=== PATIENT | male | born 1945 | race Caucasian/White ===

== ENCOUNTER 2016-10-03 01:39 | Emergency (ER) | payer MEDICARE, BC ==
[2008-02-23 18:02] VITALS: BP 144/61
[~2016-10-03] VITALS: Ht 185.4 cm; Wt 127.7 kg
[~2016-10-03 01:39] MED LIST: ACIPHEX20 MG PO; ASPIRIN 32325 MG/TAB PO; ASPIRIN 81M81 MG/TA2 PO; ASPIRIN E.C. 8181 MG PO; ATIVAN 0.50.5 MG/TAB PO; ATROVENT I0.2 MG/1 M IH; BROVANA15 MCG/2 M IH; BYSTOLIC10 MG PO; CLOPIDOGREL; CO ENZYME Q-1050 MG PO; DIOVAN; DOXYCYCLINE 10100 MG PO; EFFIENT10 MG PO; EPA/GLA1 SGL PO; FISH OIL1 IU PO; HYZAAR 25 MG-101 TAB PO; IMDUR 30MG30 MG/TAB PO; LEVAQUIN 5500 MG/TA1 PO; LIVALO PO; LIVALO2 MG PO; LOPRESSOR 225 MG/TAB PO; MASON NATURAL1200 MG PO; MEDROL 4MG DOSPA4 MG PO; MICARDIS HCT 251 TAB PO; MULTI VITAMINS1 TAB PO; NEURONTIN100 MG/CAP PO; PHENERGAN W/CO120 M1 PO; PLAVIX 75MG TAB75 MG PO; PRAVACHOL 40MG40 MG PO; PREDNISONE20 MG PO; PRILOTC PO; PRINIVIL20 MG PO; PROTONIX 40MG T40 MG PO; PROTONIX40 MG PO; PULMICORT0.25 MG/2 IH; PULMICORT0.5 MG/2 M IH; PULMICORT0.5 MG/21 IH; RT SPIRIVA18 MCG IH; SINGULAIR 110 MG/TAB PO; SINGULAIR10 MG PO; SPIRIVA; UNICOMPLEX1 CAP PO; VALIUM 5MG T5 MG/TAB PO; VITAMIN D32000 I1 PO; XOPENEX 0.0.625 MG/3 IH; XOPENEX 3 ML3 M1 IH; ZITHROMAX 250M250 MG PO; ZOCOR 20MG20 MG PO; ZOFRAN 4MG T4 MG/TAB PO; ZOFRAN ODT4 MG PO; [UNRECOGNIZED DRUG - OTHER]; spiriva
[2016-10-03] MEDS ORDERED: PERCOCET 325 MG1 TA2 PO (02:25)
[2016-10-03] MEDS ORDERED: VALTREX1 GM PO (02:25)
[2016-10-03] MEDS ORDERED: ZOFRAN ODT4 MG PO (02:25)
[2016-10-03 02:34] VITALS: BP 176/80; PULSE 88; TEMP 98.1
== END 2016-10-03 02:36 | disposition home or self-care (01) ==
LOC: COL.ER 01:39
DX: B02.9 Zoster without complications (principal); I25.10 Atherosclerotic heart disease of native coronary artery without angina pectoris; Z95.5 Presence of coronary angioplasty implant and graft; J44.9 Chronic obstructive pulmonary disease, unspecified; Z79.02 Long term (current) use of antithrombotics/antiplatelets; K21.9 Gastro-esophageal reflux disease without esophagitis

== ENCOUNTER 2017-02-02 16:15 | Inpatient (IN) | payer MEDICARE, BC ==
[~2017-02-02] VITALS: Ht 185.4 cm; Wt 128.1 kg
[~2017-02-02 16:15] MED LIST changes: +PERCOCET 325 MG1 TA2 PO; +VALTREX1 GM PO
[2017-02-02 16:50] LABS: BASO % 0.3 % (0.0-2.0); EOS % 0.2 % (0-4.0); GRAN # 9.9 (1.4-6.5); HEMATOCRIT 38.5 % (42.0-52.0); HEMOGLOBIN 13.1 g/dl (13.5-18.0); LYMPH # 0.8 (1.2-3.4); LYMPH % 7.1 % (20.0-51.0); MEAN CELL VOLUME 91 fl (80.0-100.0); MEAN CORPUSCULAR HEMOGLOBIN 31 pg (27.0-31.0); MEAN CORPUSCULAR HGB CONC 34 g/dl (33.0-37.0); MEAN PLATELET VOLUME 10.1 fl (7.4-10.4); MONO # 0.6 (0.1-0.6); MONO % 4.9 % (1.7-9.3); PLATELET COUNT 317 K/mm3 (130-400); RED BLOOD COUNT 4.24 M/mm3 (4.20-5.60); REDCELL DISTRIBUTION WIDTH-CV 12.9 % (11.5-14.5); WHITE BLOOD COUNT 11.4 K/mm3 (4.8-10.8)
[2017-02-02 16:58] LABS: INR 1.4 (0.8-3.0); PROTHROMBIN TIME 15.4 SECONDS (9.7-12.8)
[2017-02-02] MEDS ORDERED: PERCOCET 325 MG1 TA2 PO (16:58)
[2017-02-02] MEDS ORDERED: OMNICEF 300MG300 MG PO (16:58)
[2017-02-02] MEDS ORDERED: ZOCOR 20MG20 MG PO (16:58)
[2017-02-02] MEDS ORDERED: NEURONTIN600 MG/TAB PO (16:59)
[2017-02-02] MEDS ORDERED: SINGULAIR 110 MG/TAB PO (16:59)
[2017-02-02] MEDS ORDERED: PROTONIX 40MG T40 MG PO (16:59)
[2017-02-02] MEDS ORDERED: MULTIPLE VITAMI1 CAP PO (16:59)
[2017-02-02] MEDS ORDERED: ISOCHRON40 MG PO (17:00)
[2017-02-02] MEDS ORDERED: ASPIRIN E.C. 8181 MG PO (17:01)
[2017-02-02] MEDS ORDERED: PLAVIX 75MG TAB75 MG PO (17:01)
[2017-02-02] MEDS ORDERED: BYSTOLIC10 MG PO (17:01)
[2017-02-02] MEDS ORDERED: HYZAAR 25 MG-101 TAB PO (17:01)
[2017-02-02] MEDS ORDERED: MASON NATURAL2000 IU (17:02)
[2017-02-02 17:11] LABS: ADJUSTED CALCIUM 9.5 mg/dL (8.4-10.2); ALANINE AMINOTRANSFERASE 28 U/L (21-72); ALBUMIN 3.7 gm/dL (3.5-5.0); ALKALINE PHOSPHATASE 90 U/L (50-136); ANION GAP 12 mmol/L (7-16); BILIRUBIN,TOTAL 1.3 mg/dL (0.0-1.0); BLOOD UREA NITROGEN 33 mg/dL (9-20); CALCIUM 9.3 mg/dL (8.4-10.2); CARBON DIOXIDE 28 mmol/L (22-30); CHLORIDE 95 mmol/L (98-107); CREATININE, serum 1.39 mg/dL (0.66-1.25); GLUCOSE 111 mg/dL (74-106); LIPASE 65 U/L (23-300); POTASSIUM 4.1 mmol/L (3.4-5.0); SODIUM 135 mmol/L (137-145); TOTAL PROTEIN 7.3 gm/dL (6.4-8.2)
[2017-02-02 17:24] LABS: TROPONIN-I < 0.012 ng/mL (0.000-0.034)
[2017-02-02 17:41] LABS: B-TYPE NATRIURETIC PEPTIDE 233 pg/mL (0-125)
[2017-02-02 21:27] VITALS: BP 135/48; PULSE 92; TEMP 98.4
[2017-02-03 00:27] VITALS: BP 137/49; PULSE 85; TEMP 97.8
[2017-02-03 05:12] VITALS: BP 126/44; PULSE 84; TEMP 97.9
[2017-02-03 06:58] LABS: ADD PATHOLOGY DIFF REVIEW NO
[2017-02-03 07:08] LABS: HEMATOCRIT 35.4 % (42.0-52.0); MEAN CELL VOLUME 92 fl (80.0-100.0); MEAN CORPUSCULAR HEMOGLOBIN 31 pg (27.0-31.0); MEAN CORPUSCULAR HGB CONC 34 g/dl (33.0-37.0); MEAN PLATELET VOLUME 10.1 fl (7.4-10.4); PLATELET COUNT 320 K/mm3 (130-400); RED BLOOD COUNT 3.85 M/mm3 (4.20-5.60); REDCELL DISTRIBUTION WIDTH-CV 12.8 % (11.5-14.5); WHITE BLOOD COUNT 9.6 K/mm3 (4.8-10.8)
[2017-02-03 07:18] LABS: ANION GAP 11 mmol/L (7-16); BLOOD UREA NITROGEN 31 mg/dL (9-20); CALCIUM 8.7 mg/dL (8.4-10.2); CARBON DIOXIDE 29 mmol/L (22-30); CHLORIDE 95 mmol/L (98-107); CREATININE, serum 1.14 mg/dL (0.66-1.25); GLUCOSE 174 mg/dL (74-106); POTASSIUM 3.8 mmol/L (3.4-5.0); SODIUM 134 mmol/L (137-145)
[2017-02-03 07:32] LABS: BAND 8 % (0-10); BASOPHIL 1 % (0-2); NEUTROPHILS 85 % (42.0-75.2); PLATELET ESTIMATE NORMAL (NORMAL); TOTAL CELLS COUNTED 100
[2017-02-03 07:49] VITALS: BP 144/61; PULSE 78; TEMP 97.2
[2017-02-03 12:33] VITALS: BP 102/74; PULSE 82; TEMP 98.5
[2017-02-03 14:22] LABS: TROPONIN-I < 0.012 ng/mL (0.000-0.034)
[2017-02-03 15:08] VITALS: BP 117/52; PULSE 86; TEMP 98.2
[2017-02-04 01:30] VITALS: BP 148/69; PULSE 79; TEMP 97.4
[2017-02-04 04:45] VITALS: BP 174/93; PULSE 85; TEMP 97.9
[2017-02-04 07:36] VITALS: BP 163/56; PULSE 80; TEMP 97.6
[2017-02-04] MEDS ORDERED: LEVAQUIN 750MG750 M1 PO (10:22)
[2017-02-04] MEDS ORDERED: PREDNISONE20 MG PO (10:23)
[2017-02-04 12:47] VITALS: BP 125/63; PULSE 93; TEMP 97.5
== END 2017-02-04 13:30 | disposition home or self-care (01) | DRG 190 ==
LOC: COL.ER 16:15 → MEDICAL 19:45
PROVIDERS: Emergency Medicine
DX: J44.1 Chronic obstructive pulmonary disease with (acute) exacerbation (principal); J18.9 Pneumonia, unspecified organism; N17.9 Acute kidney failure, unspecified; I10 Essential (primary) hypertension; I73.9 Peripheral vascular disease, unspecified; G47.33 Obstructive sleep apnea (adult) (pediatric); K21.9 Gastro-esophageal reflux disease without esophagitis; E78.5 Hyperlipidemia, unspecified; R73.9 Hyperglycemia, unspecified; Z87.891 Personal history of nicotine dependence
CPT/HCPCS: 99222-AI; 99231-AI; 99239; J0456; J0696; J1170; J1940; J2405; J2920; J7030; J7050; J7512; Q9967

== ENCOUNTER 2017-05-03 15:10 | Emergency (ER) | payer MEDICARE, BC ==
[2008-02-23 18:02] VITALS: BP 144/61
[~2017-05-03] VITALS: Ht 185.4 cm; Wt 122.7 kg
[~2017-05-03 15:10] MED LIST changes: +ISOCHRON40 MG PO; +LEVAQUIN 750MG750 M1 PO; +MASON NATURAL2000 IU; +MULTIPLE VITAMI1 CAP PO; +NEURONTIN600 MG/TAB PO; +OMNICEF 300MG300 MG PO
[2017-05-03 15:22] VITALS: TEMP 98.1
[2017-05-03 16:48] LABS: BASO % 0.7 % (0.0-2.0); EOS # 0.2 (0.0-0.7); EOS % 2.8 % (0-4.0); GRAN # 3.3 (1.4-6.5); GRAN % 57.2 % (42.2-75.2); HEMATOCRIT 38.9 % (42.0-52.0); HEMOGLOBIN 13.4 g/dl (13.5-18.0); LYMPH # 1.8 (1.2-3.4); LYMPH % 31.9 % (20.0-51.0); MEAN CELL VOLUME 89 fl (80.0-100.0); MEAN CORPUSCULAR HEMOGLOBIN 31 pg (27.0-31.0); MEAN CORPUSCULAR HGB CONC 34 g/dl (33.0-37.0); MEAN PLATELET VOLUME 10.3 fl (7.4-10.4); MONO # 0.4 (0.1-0.6); PLATELET COUNT 251 K/mm3 (130-400); RED BLOOD COUNT 4.36 M/mm3 (4.20-5.60); WHITE BLOOD COUNT 5.7 K/mm3 (4.8-10.8)
[2017-05-03 16:55] LABS: INR 1.1 (0.8-3.0); PROTHROMBIN TIME 12.6 SECONDS (9.7-12.8)
[2017-05-03 17:35] VITALS: BP 182/73; PULSE 70
== END 2017-05-03 17:36 | disposition home or self-care (01) ==
LOC: COL.ER 15:10
PROVIDERS: Nurse Practitioner Primary Care
DX: I10 Essential (primary) hypertension (principal); I25.10 Atherosclerotic heart disease of native coronary artery without angina pectoris; I25.2 Old myocardial infarction; J44.9 Chronic obstructive pulmonary disease, unspecified; S50.811A Abrasion of right forearm, initial encounter; Z79.02 Long term (current) use of antithrombotics/antiplatelets; Z79.82 Long term (current) use of aspirin; W22.8XXA Striking against or struck by other objects, initial encounter

== ENCOUNTER → 2018-08-02 | Outpatient (CLI) | payer MEDICARE, BC | LOC: COL.RAD 13:32 | DX: M43.16 Spondylolisthesis, lumbar region (principal); M48.07 Spinal stenosis, lumbosacral region; M51.37 Other intervertebral disc degeneration, lumbosacral region | CPT/HCPCS: A9585 ==

== ENCOUNTER 2018-09-06 10:10 | Emergency (ER) | payer MEDICARE, BC ==
[2008-02-23 18:02] VITALS: BP 144/61
[~2018-09-06] VITALS: Ht 185.4 cm; Wt 130.0 kg
[2018-09-06 10:23] VITALS: TEMP 98.5
[2018-09-06 11:09] LABS: BASO % 0.2 % (0.0-2.0); GRAN # 5.7 (1.4-6.5); GRAN % 87.4 % (42.2-75.2); HEMATOCRIT 38.6 % (42.0-52.0); HEMOGLOBIN 13.6 g/dl (13.5-18.0); LYMPH # 0.5 (1.2-3.4); LYMPH % 7.4 % (20.0-51.0); MEAN CELL VOLUME 89 fl (80.0-100.0); MEAN CORPUSCULAR HEMOGLOBIN 31 pg (27.0-31.0); MEAN CORPUSCULAR HGB CONC 35 g/dl (33.0-37.0); MEAN PLATELET VOLUME 9.6 fl (7.4-10.4); MONO # 0.3 (0.1-0.6); MONO % 4.5 % (1.7-9.3); PLATELET COUNT 304 K/mm3 (130-400); RED BLOOD COUNT 4.36 M/mm3 (4.20-5.60); REDCELL DISTRIBUTION WIDTH-CV 13.2 % (11.5-14.5)
[2018-09-06 11:24] LABS: CALCIUM 8.8 mg/dL (8.4-10.2); CREATININE, serum 1.18 (0.66-1.25); POTASSIUM 3.5 mmol/L (3.4-5.0); TOTAL PROTEIN 7.1 gm/dL (6.4-8.2)
[2018-09-06] MEDS ORDERED: ZOFRAN 4MG T4 MG/TAB PO (12:22)
[2018-09-06 13:40] VITALS: BP 172/82; PULSE 90
== END 2018-09-06 13:43 | disposition home or self-care (01) ==
LOC: COL.ER 10:10
PROVIDERS: Emergency Medicine
DX: K52.9 Noninfective gastroenteritis and colitis, unspecified (principal); Z79.82 Long term (current) use of aspirin; Z79.02 Long term (current) use of antithrombotics/antiplatelets
CPT/HCPCS: J1885; J2405; J2550; J3010; J7030

== ENCOUNTER 2018-12-02 06:40 | Emergency (ER) | payer MEDICARE, BC ==
[2008-02-23 18:02] VITALS: BP 144/61
[~2018-12-02] VITALS: Ht 185.4 cm; Wt 129.8 kg
[2018-12-02 07:33] LABS: BASO % 0.4 % (0.0-2.0); EOS # 0.1 (0.0-0.7); EOS % 0.9 % (0-4.0); GRAN # 5.4 (1.4-6.5); GRAN % 79.8 % (42.2-75.2); HEMATOCRIT 37.3 % (42.0-52.0); LYMPH # 0.8 (1.2-3.4); LYMPH % 11.4 % (20.0-51.0); MEAN CELL VOLUME 89 fl (80.0-100.0); MEAN CORPUSCULAR HEMOGLOBIN 31 pg (27.0-31.0); MEAN CORPUSCULAR HGB CONC 35 g/dl (33.0-37.0); MEAN PLATELET VOLUME 9.3 fl (7.4-10.4); MONO # 0.5 (0.1-0.6); MONO % 6.8 % (1.7-9.3); PLATELET COUNT 293 K/mm3 (130-400); REDCELL DISTRIBUTION WIDTH-CV 13.3 % (11.5-14.5)
[2018-12-02 07:42] LABS: ALBUMIN 3.5 gm/dL (3.5-5.0); BILIRUBIN,TOTAL 0.5 mg/dL (0.0-1.0); CALCIUM 8.6 mg/dL (8.4-10.2); CREATININE, serum 1.14 (0.66-1.25); POTASSIUM 3.5 mmol/L (3.4-5.0); TOTAL PROTEIN 6.3 gm/dL (6.4-8.2)
[2018-12-02 07:58] LABS: PROLACTIN 35.7 ng/mL (3.7-17.9)
[2018-12-02 09:39] VITALS: BP 132/64; PULSE 80; TEMP 98.2
== END 2018-12-02 09:50 | disposition home or self-care (01) ==
LOC: COL.ER 06:40
PROVIDERS: Family Medicine
DX: S01.81XA Laceration without foreign body of other part of head, initial encounter (principal); S40.022A Contusion of left upper arm, initial encounter; S40.021A Contusion of right upper arm, initial encounter; R40.2412 Glasgow coma scale score 13-15, at arrival to emergency department; Z23 Encounter for immunization; Z79.82 Long term (current) use of aspirin; Z79.02 Long term (current) use of antithrombotics/antiplatelets; W06.XXXA Fall from bed, initial encounter

== ENCOUNTER 2018-12-04 12:05 | Emergency (ER) | payer MEDICARE, BC ==
[2008-02-23 18:02] VITALS: BP 144/61
[~2018-12-04] VITALS: Ht 185.4 cm; Wt 126.4 kg
[2018-12-04 12:38] VITALS: BP 141/61; PULSE 96; TEMP 98.7
== END 2018-12-04 15:11 | disposition home or self-care (01) ==
LOC: COL.ER 12:05
DX: S50.811A Abrasion of right forearm, initial encounter (principal); Z79.82 Long term (current) use of aspirin; Z79.02 Long term (current) use of antithrombotics/antiplatelets; W06.XXXA Fall from bed, initial encounter